=== PATIENT | male | born 1990 | race Caucasian/White ===

== ENCOUNTER 2018-03-07 12:53 | Outpatient (CLI) | payer OTHER | END 2018-03-07 13:07 | disposition home or self-care (01) | LOC: RAD 12:53 → MRI 12:53 → RAD 13:07 → MRI 03-11 13:45 | DX: M96.1 Postlaminectomy syndrome, not elsewhere classified (principal); M48.061 Spinal stenosis, lumbar region without neurogenic claudication ==

== ENCOUNTER → 2019-10-16 | Outpatient (CLI) | payer OTHER | END | disposition home or self-care (01) | LOC: MRI 13:00 | PROVIDERS: ATTEND Neurological Surgery | DX: M48.061 Spinal stenosis, lumbar region without neurogenic claudication (principal); M96.1 Postlaminectomy syndrome, not elsewhere classified | CPT/HCPCS: 72148; 72149 ==